=== PATIENT | male | born 1995 | race Hispanic/Latino ===

== ENCOUNTER → 2018-03-05 | Outpatient (CLI) | payer BC ==
--- NOTE | 2018-03-05 13:26 | Diagnostic Imaging Report ---
EXAMINATION: MRI of the brain without contrast. HISTORY: Syncope, history of concussion, possible seizure COMPARISON: Head CT on 11/02/2016 TECHNIQUE: Pre-contrast: Sagittal T1; axial T1-IR, MPGR, DWI, FLAIR; Post-contrast: axial, sagittal, and coronal T1. Thin section coronals of the temporal lobes: FLAIR, T2. FINDINGS: Mass: None. Enhancement: No abnormal enhancement of the brain or meninges. Encephalomalacia: No areas. Ischemic changes: None. Calcification/iron: No abnormal deposits. Hippocampi: No atrophy or gliosis. Normal fornices. Vascular: No obvious vascular malformation. Normal flow voids in major arteries and veins.[ Dumont matter: No cortical migration anomalies. Other: Brain volume: Normal for age. Ventricles: No hydrocephalus or displacement. Foramen Magnum: Unremarkable. Sella: Unremarkable. Skull: No focal lesions. Sinuses/mastoids: No significant inflammatory disease. IMPRESSION: Normal brain MRI, particularly no mass or mesial temporal sclerosis. Signed by: Dr. Ashli Burgess M.D. on 03/05/2018 1:23 PM
== END ==
LOC: MRI 11:00
PROVIDERS: ATTEND Family Medicine
DX: R55 Syncope and collapse (principal)
CPT/HCPCS: 70551